=== PATIENT | female | born 1950 | race Caucasian/White ===

== ENCOUNTER → 2022-05-28 | Outpatient (CLI) | payer MEDICARE, BC, SELFPAY ==
--- NOTE | 2022-05-28 10:26 | BD_ITS ---
STUDY: DUAL ENERGY X-RAY ABSORPTIOMETRY / DXA REASON FOR EXAM: Female, 71 years old. N95.9 TECHNIQUE: Bone Mineral Density (BMD) measurements of lumbar spine and bilateral hips were obtained. COMPARISON: Comparison is made with prior study November 03, 2012. FINDINGS: Lumbar Spine (L1-L4): g/cm2 (0.996) / T-score (-0.5) / Z-score (1.6) Findings are suggestive of normal bone density with a low fracture risk. Left Femur Total: g/cm2 (0.846) / T-score (-0.8) / Z-score (0.7) Left Femoral Neck: g/cm2 (0.782) / T-score (-0.6) / Z-score (1.2) Right Femur Total: g/cm2 (0.838) / T-score (-0.9) / Z-score (0.6) Right Femoral Neck: g/cm2 (0.753) / T-score (-0.9) / Z-score (0.9) The T-Scores on the most recent prior examination were: Lumbar Spine (L1-L4): There has been worsening of bone density since the previous examination. Left Femur Total: which represents a worsening of 13.1%. Right Femur Total: which represents a worsening of 17%. BD/Dexa Bone Density Study IMPRESSION: The patient is considered normal as outlined below according to World Marcus Organization (WHO) criteria with a low fracture risk. There has been worsening of bone density since the previous examination. Reference Information: The T-score is the number of standard deviations above or below the standard which is normal for young adults at their peak bone mineral density. The World Health Organization (WHO) interprets the T-scores as follows: Above -1 Normal bone density Between -1 and -2.5 Osteopenia Equal to / or below -2.5 Osteoporosis As a practical clinical guideline, osteopenia may be graded as follows: Mild -1 through -1.5 Moderate -1.6 through -2.0 Severe -2.1 through -2.4 The Z-score is the number of standard deviations above or below age-matched controls. A Z-score of less than -1.5 would be considered abnormal. References: 1. NIH Osteoporosis and Related Bone Diseases www osteo.org 2. International Society for Clinical Densitometry www iscd.org 3. National Osteoporosis Foundation www nof.org Electronically Signed: Krystian Mcgovern MD at 13:28 EDT ,
== END | disposition home or self-care (01) ==
LOC: OPBD 10:12
PROVIDERS: PCP Family Medicine
DX: N95.9 Unspecified menopausal and perimenopausal disorder (principal)
CPT/HCPCS: 77080

== ENCOUNTER → 2022-09-17 | Outpatient (CLI) | payer MEDICARE, BC, SELFPAY ==
--- NOTE | 2022-09-17 13:44 | ECHOD_ITS ---
Reason For Study: MURMUR Procedure This was a 2D Doppler, Color Flow transthoracic echocardiogram. Exam performed in department. Left Ventricle Normal LV size. The estimated ejection fraction is 55 %. Normal diastology for age. No regional wall motion abnormalities noted. Right Ventricle Normal RV size. Normal systolic function. Atria Normal left atrium. Normal right atrium. No doppler evidence for ASD. Bubble contrast study negative for right to left interatrial shunt. Mitral Valve There is mild to moderate mitral annular calcification. There is no mitral valve stenosis. Mild (1+) mitral valve insufficiency. Tricuspid Valve There is no tricuspid stenosis. Mild tricuspid valve insufficiency. Pulmonary artery systolic pressure is 25 mmHg. Aortic Valve Trisinus/trileaflet aortic valve. Moderate diffuse aortic valve thickening. Mild aortic stenosis. No aortic valve insufficiency. Pulmonic Valve There is no pulmonic valvular stenosis. No pulmonic valve insufficiency. Great Vessels Normal aortic root. Pericardium/Pleural No pericardial effusion. Medication 22 gauge I.V. with prn adaptor inserted into right arm. Performed a rapid injection of agitated mix of 9 cc saline and 1cc air to assess for atrial septal defect. MMode/2D Measurements & Calculations LVIDd: 4.8 cm IVSd: 0.91 cm LVOT diam: 2.1 cm LVIDs: 3.5 cm LVPWd: 0.86 cm RVDd: 4.0 cm FS: 25.6 % LVOT area: 3.3 cm2 Ao root diam: 2.9 cm LAV(MOD-bp): 33.4 ml LA A4 area: 15.7 cm2 LAV(MOD-bp) Indexed: 19.4 ml/m2 LAV(MOD-sp2): 28.3 ml LAV(MOD-sp4): 39.3 ml LA dimension(2D): 3.0 cm TAPSE: 1.8 cm RA A4 area: 11.8 cm2 Time Measurements MV dec time: 0.14 sec Doppler Measurements & Calculations MV E max loki: 74.9 cm/sec Lat Peak E' Loki: 9.0 cm/sec Med Peak E' Loki: 7.6 cm/sec MV A max loki: 85.2 cm/sec E/E' lat: 8.3 E/E' med: 9.9 MV E/A: 0.88 MV V2 max: 82.0 cm/sec MV dec slope: 548.8 cm/sec2 Ao V2 max: 243.4 cm/sec MV max P.7 mmHg Ao max P.7 mmHg MV V2 mean: 53.3 cm/sec Ao V2 mean: 180.7 cm/sec MV mean P.3 mmHg Ao mean P.7 mmHg MV V2 VTI: 28.5 cm Ao V2 VTI: 58.5 cm MVA(VTI): 2.4 cm2 AV (velocity ratio): 0.36 KIM(I,D): 1.2 cm2 KIM(V,D): 1.2 cm2 LV V1 max: 91.2 cm/sec MR max loki: 495.8 cm/sec SV(LVOT): 69.3 ml LV V1 max P.3 mmHg MR max P.3 mmHg LV V1 mean P.0 mmHg LV V1 mean: 65.6 cm/sec LV V1 VTI: 20.8 cm PA V2 max: 73.9 cm/sec PA V2 mean: 56.7 cm/sec ECHO/Echo Complete Interpretation Summary The estimated ejection fraction is 55 %. Normal diastology for age. Mild (1+) mitral valve insufficiency. Mild aortic stenosis. Ordering Physician: Ayush Neves Referring Physician: Ayush Neves Performed By: Negin Mart RCS
== END | disposition home or self-care (01) ==
LOC: CVS 13:43
PROVIDERS: PCP Family Medicine; Referring Provider Internal Medicine Cardiovascular Disease; Visit Provider Internal Medicine Cardiovascular Disease
DX: I36.1 Nonrheumatic tricuspid (valve) insufficiency (principal); E78.5 Hyperlipidemia, unspecified; R01.1 Cardiac murmur, unspecified
CPT/HCPCS: 93306

== ENCOUNTER → 2024-01-19 | Outpatient (CLI) | payer MEDICARE, BC, SELFPAY ==
--- NOTE | 2024-01-19 14:08 | RAD_ITS ---
STUDY: X-RAY CHEST REASON FOR EXAM: Female, 73 years old. Cough TECHNIQUE: PA and lateral views of the chest. COMPARISON: None. FINDINGS: Calcified nodules in the left breast. There is hyperinflation of the lungs consistent with chronic obstructive lung disease (COPD). There is no demonstrated pleural abnormality. Normal size heart. Normal mediastinum and ray. There is prominence of the pulmonary hilar arteries without peripheral pulmonary vascular congestion, suggesting pulmonary hypertension. Normal visualized aortic arch and descending thoracic aorta. There are diffuse degenerative changes of the visualized thoracic spine. Normal visualized ribs, clavicles, and shoulders. There is no demonstrated abnormality of the visualized soft tissue structures of the upper abdomen. RAD/Chest PA and Lateral IMPRESSION: Hyperinflation and COPD. Electronically Signed: Krystian Mcgovern MD at 15:01 EST ,
[2024-01-19 14:51] LABS: Absolute Lymphocyte Count 0.88 X10^3/uL (0.83-4.51); Basophil# 0.06 X10^3/uL; Basophil% 0.5 % (0-1); Eosinophil# 0.46 X10^3/uL; Eosinophils% 4.1 % (0-5); Hematocrit 40.9 % (37-47); Hemoglobin 13.4 g/dL (12.0-15.0); Lymphocyte # 0.88 X10^3/ul (0.83-4.51); Lymphocyte % 7.8 % (19-41); Mean Corp Hgb Conc 32.8 g/dL (32-36); Mean Corpuscular Hgb 30.8 pg (27.0-32.0); Mean Platelet Vol. 9.8 fl (6.2-12.0); Monocyte# 0.82 X10^3/uL; Monocyte% 7.3 % (0-10); NRBC Flagged by Analyzer 0 % (0-5); Neutrophil # 8.98 X10^3/uL (2.7-7.7); Neutrophil % 79.9 % (47-70); Platelet Count 222 K/mm3 (150-450); RBC Distribution Width CV 12.3 % (11.6-14.6); RBC Distribution Width SD 43.2 fl (35.1-43.9); Red Blood Count 4.35 M/mm3 (4.2-5.4); White Blood Count 11.2 K/mm3 (4.4-11.0)
[2024-01-19 15:16] LABS: BNP,B-Type NATRIURETIC PEPTIDE 48.4 pg/mL (0-100)
[2024-01-19 15:28] LABS: Anion Gap 5 (5-15); BUN 8 mg/dL (7-18); BUN/Creat Ratio 13.9 RATIO (10-20); Calcium,Total 9.8 mg/dL (8.5-10.1); Chloride 101 mmol/L (98-107); Creatinine, Serum 0.58 mg/dL (0.55-1.02); EST Glomerular Filtration Rate 110 mL/min (>60); Est Glom Filt Rate - Afr Amer 133 mL/min (>60); Glucose 119 mg/dL (74-106); Potassium 4.2 mmol/L (3.5-5.1); Sodium Level 136 mmol/L (136-145); T4 Free Direct 1.37 ng/dL (0.76-1.46); Thyroid Stim Hormone (TSH) 0.042 uIU/mL (0.358-3.740)
== END | disposition home or self-care (01) ==
PROVIDERS: Referring Provider Nurse Practitioner Family; Visit Provider Nurse Practitioner Family
DX: R06.02 Shortness of breath (principal); R53.83 Other fatigue; R06.09 Other forms of dyspnea
CPT/HCPCS: 36415; 71046; 80048; 83880; 84439; 84443; 85025